=== PATIENT | male | born 1960 | race Caucasian/White ===

== ENCOUNTER 2019-01-21 20:21 | Emergency (ER) | payer OTHER ==
[~2019-01-21 20:21] MED LIST: CETI10CA5 PO; L.AC1CAP6 PO; MULT-1258 PO; TAMS-1 PO
[2019-01-21 21:13] LABS: BASOPHILS % (AUTO) 0.5 % (0.0-5.0); EOSINOPHILS % (AUTO) 2.4 % (0.0-8.0); HEMATOCRIT 45.1 % (42-54); LYMPHOCYTES % (AUTO) 12.1 % (21.0-51.0); MEAN CORPUSCULAR HGB CONC 34.2 g/dL (32.0-36.0); MEAN CORPUSCULAR VOLUME 87.5 fL (79-99); MONOCYTES % (AUTO) 9.3 % (3.0-13.0); NEUTROPHILS % (AUTO) 75.7 % (40.0-77.0); NUCLEATED RED BLOOD CELLS 0.1 % (0.0-0.19); PLATELET COUNT (AUTO) 303 K/uL (130-400); RED BLOOD CELL COUNT(AUTO) 5.15 MIL/uL (4.50-6.20); WHITE BLOOD COUNT (AUTO) 8.6 K/uL (4.8-10.8)
[2019-01-21] MEDS ORDERED: TRAMADOL HCL 50 MG TABLET ONE (21:13)
[2019-01-21 21:18] LABS: APPEARANCE,URINE CLOUDY (CLEAR); BILIRUBIN,URINE NEGATIVE (NEGATIVE); GLUCOSE, URINE (UA) NEGATIVE (NEGATIVE); KETONES,URINE NEGATIVE (NEGATIVE); LEUKOCYTE ESTERASE ,URINE SMALL (NEGATIVE); NITRATE,URINE NEGATIVE (NEGATIVE); OCCULT BLOOD,URINE LARGE (NEGATIVE); PROTEIN,URINE >=300 (NEGATIVE); UROBILINOGEN,URINE 0.2 mg/dL (0.2-1.0)
[2019-01-21 21:20] LABS: COLOR,URINE DARK YELLOW (YELLOW)
[2019-01-21 21:23] LABS: CREATININE 1.4 mg/dL (0.5-1.5); POTASSIUM 4.5 mmol/L (3.5-5.1)
[2019-01-21 21:25] LABS: PARTIAL THROMBOPLASTIN TIME 27.5 SEC (26.3-35.5); PROTHROMBIN TIME 10.5 SEC (9.6-11.6)
[2019-01-21 21:29] LABS: ALBUMIN 3.6 g/dL (3.5-5.0); BILIRUBIN,TOTAL 0.5 mg/dL (0.2-1.0); TOTAL PROTEIN, SERUM 7.4 g/dL (6.0-8.3)
[2019-01-21 21:33] LABS: BACTERIA,URINE Many /HPF (None Seen); RBC,URINE TNTC /HPF (0-1); SQUAMOUS EPITHELIAL CELL,UR None Seen /HPF (0-2); TRANSITIONAL EPI CELLS,URINE Rare /HPF (None Seen); WBC,URINE 26-50 /HPF (0-1)
[2019-01-21] MEDS ORDERED: SODIUM CHLORIDE 0.9% 1000ML 1,000 ML IV ONE (23:17)
== END 2019-01-21 23:57 | disposition home or self-care (01) ==
LOC: EDH 20:21
DX: R33.9 Retention of urine, unspecified (principal); R31.9 Hematuria, unspecified
CPT/HCPCS: 36415; 51702; 80053; 81001; 82550; 84484; 85025; 85610; 85730; 87088; 93005; 99284; J7030

== ENCOUNTER 2020-12-09 08:47 | Emergency (ER) | payer OTHER | END 2020-12-09 10:24 | disposition home or self-care (01) | LOC: EDH 08:47 | DX: Z46.6 Encounter for fitting and adjustment of urinary device (principal); I10 Essential (primary) hypertension; Z85.51 Personal history of malignant neoplasm of bladder | CPT/HCPCS: 99281 ==

== ENCOUNTER 2022-07-11 19:23 | Emergency (ER) | payer OTHER ==
[~2022-07-11] VITALS: Ht 172.7 cm; Wt 74.8 kg
[2022-07-11 19:24] VITALS: BP 167/100
[2022-07-11 20:25] LABS: APPEARANCE,URINE CLEAR (CLEAR); BILIRUBIN,URINE NEGATIVE (NEGATIVE); COLOR,URINE YELLOW (YELLOW); GLUCOSE, URINE (UA) NEGATIVE (NEGATIVE); KETONES,URINE NEGATIVE (NEGATIVE); LEUKOCYTE ESTERASE ,URINE NEGATIVE (NEGATIVE); NITRATE,URINE NEGATIVE (NEGATIVE); OCCULT BLOOD,URINE TRACE-INTACT (NEGATIVE); PROTEIN,URINE NEGATIVE (NEGATIVE); UROBILINOGEN,URINE 0.2 mg/dL (0.2-1.0)
[2022-07-11 20:41] LABS: BACTERIA,URINE Few /HPF (None Seen); SQUAMOUS EPITHELIAL CELL,UR Rare /HPF (0-2)
[2022-07-11] MEDS ORDERED: CEPH500B PO (20:47)
[2022-07-11] MEDS ORDERED: CEFTRIAXONE 1G VIAL IM ONE (21:00)
== END 2022-07-11 21:14 | disposition home or self-care (01) ==
LOC: EDH 19:23
DX: N39.0 Urinary tract infection, site not specified (principal); R33.9 Retention of urine, unspecified; C61 Malignant neoplasm of prostate
CPT/HCPCS: 99284; 81001; 51702; 96372; J0696

== ENCOUNTER 2022-07-13 16:27 | Emergency (ER) | payer OTHER ==
[~2022-07-13] VITALS: Ht 172.7 cm; Wt 73.5 kg
[~2022-07-13 16:27] MED LIST changes: +CEPH500B PO
[2022-07-13 16:39] VITALS: BP 149/85
== END 2022-07-13 18:45 | disposition home or self-care (01) ==
LOC: EDH 16:27
DX: N32.89 Other specified disorders of bladder (principal); Z85.46 Personal history of malignant neoplasm of prostate; R33.9 Retention of urine, unspecified; Z79.899 Other long term (current) drug therapy
CPT/HCPCS: 99281

== ENCOUNTER 2022-07-15 03:56 | Emergency (ER) | payer OTHER ==
[~2022-07-15] VITALS: Ht 172.7 cm; Wt 75.3 kg
[2022-07-15 05:20] VITALS: BP 135/74
== END 2022-07-15 05:24 | disposition home or self-care (01) ==
LOC: EDH 03:56
DX: R33.9 Retention of urine, unspecified (principal); R31.9 Hematuria, unspecified; Z85.51 Personal history of malignant neoplasm of bladder; Z79.899 Other long term (current) drug therapy
CPT/HCPCS: 51702

== ENCOUNTER 2022-07-26 12:01 | Emergency (ER) | payer OTHER ==
[~2022-07-26 12:01] MED LIST changes: +FERR324T4 PO; +MAGN400C PO; +SENN8.6T32 PO
[2022-07-26 13:43] LABS: BASOPHILS % (AUTO) 0.4 % (0.0-5.0); HEMATOCRIT 26.2 % (42-54); LYMPHOCYTES % (AUTO) 5.6 % (21.0-51.0); MEAN CORPUSCULAR HEMOGLOBIN 29.2 pg (27.0-33.0); MEAN CORPUSCULAR HGB CONC 34.4 g/dL (32.0-36.0); MEAN CORPUSCULAR VOLUME 85.1 fL (79-99); MONOCYTES % (AUTO) 10.4 % (3.0-13.0); PLATELET COUNT (AUTO) 315 K/uL (130-400); RED BLOOD CELL COUNT(AUTO) 3.08 MIL/uL (4.50-6.20); RED CELL DISTRIBUTION WIDTH 12.2 % (11.0-15.5); WHITE BLOOD COUNT (AUTO) 8.3 K/uL (4.8-10.8)
[2022-07-26 13:55] LABS: CREATININE 1.3 mg/dL (0.5-1.5); MAGNESIUM 1.4 mg/dL (1.80-2.40); POTASSIUM 3.1 mmol/L (3.5-5.1)
[2022-07-26] MEDS ORDERED: HYDROCODONE/ACETAMINOPHEN 10/325 MG TAB PO ONE (14:30)
[2022-07-26] MEDS ORDERED: MAGNESIUM 2GM PREMIX 50ML 50 ML IV SCH (14:30)
[2022-07-26] MEDS ORDERED: POTASSIUM CHLORIDE 10% ELIXIR 20 MEQ/15 ML UDCUP PO ONE (14:30)
[2022-07-26] MEDS ORDERED: ONDANSETRON 4MG INJ IVP ONE (15:30)
[2022-07-26] MEDS ORDERED: POTASSIUM CHLORIDE 10MEQ/100ML 10 MEQ/100 ML ML IV SCH (15:30)
[2022-07-26] MEDS ORDERED: HYDROMORPHONE 0.5 MG SYG (0.5MG/0.5ML) IVP ONE (15:30)
[2022-07-26 19:23] VITALS: BP 148/90
== END 2022-07-26 19:24 | disposition home or self-care (01) ==
LOC: EDH 12:01
DX: T83.012A Breakdown (mechanical) of nephrostomy catheter, initial encounter (principal); E87.6 Hypokalemia; E83.42 Hypomagnesemia; Z79.899 Other long term (current) drug therapy; Z98.890 Other specified postprocedural states
CPT/HCPCS: 99284; 96365; 96375; 83735; 80048; 85025; 36415; J3475; J2405; J1170

== ENCOUNTER 2022-08-09 17:59 | Emergency (ER) | payer OTHER ==
[~2022-08-09] VITALS: Ht 172.7 cm; Wt 70.8 kg
[2022-08-09 18:36] LABS: BASOPHILS % (AUTO) 0.4 % (0.0-5.0); EOSINOPHILS % (AUTO) 0.3 % (0.0-8.0); HEMATOCRIT 34.1 % (42-54); LYMPHOCYTES % (AUTO) 3.5 % (21.0-51.0); MEAN CORPUSCULAR HEMOGLOBIN 27.9 pg (27.0-33.0); MEAN CORPUSCULAR HGB CONC 32.8 g/dL (32.0-36.0); NEUTROPHILS % (AUTO) 88.5 % (40.0-77.0); PLATELET COUNT (AUTO) 482 K/uL (130-400); RED BLOOD CELL COUNT(AUTO) 4.01 MIL/uL (4.50-6.20); RED CELL DISTRIBUTION WIDTH 12.7 % (11.0-15.5); WHITE BLOOD COUNT (AUTO) 14.1 K/uL (4.8-10.8)
[2022-08-09 18:45] LABS: CREATININE 2.1 mg/dL (0.5-1.5); POTASSIUM 3.9 mmol/L (3.5-5.1)
[2022-08-09 18:50] LABS: ALBUMIN 2.6 g/dL (3.5-5.0)
[2022-08-09 19:08] LABS: APPEARANCE,URINE TURBID (CLEAR); BILIRUBIN,URINE NEGATIVE (NEGATIVE); COLOR,URINE YELLOW (YELLOW); GLUCOSE, URINE (UA) NEGATIVE (NEGATIVE); KETONES,URINE NEGATIVE (NEGATIVE); LEUKOCYTE ESTERASE ,URINE 250 Leu/uL (NEGATIVE); NITRATE,URINE NEGATIVE (NEGATIVE); OCCULT BLOOD,URINE MODERATE (NEGATIVE); PH,URINE 5.5 (5.0-8.0); PROTEIN,URINE 70 mg/dL (NEGATIVE); UROBILINOGEN,URINE 0.2 mg/dL (0.2-1.0)
[2022-08-09 19:48] LABS: BACTERIA,URINE Few /HPF (None Seen)
[2022-08-09 19:49] LABS: AMORPHOUS SEDIMENT,UR Many /LPF (None Seen); MUCUS,URINE Few LPF (None Seen); SQUAMOUS EPITHELIAL CELL,UR Few /HPF (0-2); URIC ACID CRYSTALS,URINE Few /LPF (None Seen)
[2022-08-09] MEDS ORDERED: 0.9% NACL 500ML IV.SOLN 500 ML IV ONE (20:00)
[2022-08-09] MEDS ORDERED: ONDANSETRON 4MG INJ ONE (20:53)
[2022-08-09] MEDS ORDERED: CEPH500B PO (20:58)
[2022-08-09] MEDS ORDERED: ONDANSETRON 4MG INJ IVP ONE (21:00)
[2022-08-09 22:21] VITALS: BP 128/74
== END 2022-08-09 22:52 | disposition home or self-care (01) ==
LOC: EDH 17:59
DX: N99.528 Other complication of incontinent external stoma of urinary tract (principal); N39.0 Urinary tract infection, site not specified; Z98.890 Other specified postprocedural states; Z79.899 Other long term (current) drug therapy
CPT/HCPCS: 99284; 74176; 96374; 96361; 80053; 85025; 87088; 81001; 36415; J7040 ×2; J2405

== ENCOUNTER 2022-08-10 17:07 | Observation (INO) | payer OTHER ==
[~2022-08-10] VITALS: Ht 172.7 cm; Wt 62.1 kg
[2022-08-10] MEDS ORDERED: 0.9%NACL 1000ML 1,000 ML IV SCH (18:00)
[2022-08-10 18:22] LABS: BASOPHILS % (AUTO) 0.2 % (0.0-5.0); EOSINOPHILS % (AUTO) 0.1 % (0.0-8.0); HEMATOCRIT 31.8 % (42-54); MEAN CORPUSCULAR HEMOGLOBIN 27.9 pg (27.0-33.0); MEAN CORPUSCULAR HGB CONC 33.3 g/dL (32.0-36.0); MEAN CORPUSCULAR VOLUME 83.7 fL (79-99); MONOCYTES % (AUTO) 6.1 % (3.0-13.0); NEUTROPHILS % (AUTO) 88.7 % (40.0-77.0); PLATELET COUNT (AUTO) 347 K/uL (130-400); RED CELL DISTRIBUTION WIDTH 12.7 % (11.0-15.5)
[2022-08-10 18:28] LABS: CREATININE 2.1 mg/dL (0.5-1.5); POTASSIUM 4.2 mmol/L (3.5-5.1)
[2022-08-10 18:39] LABS: ALBUMIN 2.6 g/dL (3.5-5.0); TOTAL PROTEIN, SERUM 6.8 g/dL (6.0-8.3)
[2022-08-10 18:51] LABS: CRP QUANTITATIVE 191.2 mg/L (0.00-9.0)
[2022-08-10] MEDS ORDERED: CEFTRIAXONE 1G VIAL IVP ONE (19:00)
[2022-08-10 19:43] LABS: BILIRUBIN,URINE NEGATIVE (NEGATIVE); COLOR,URINE YELLOW (YELLOW); GLUCOSE, URINE (UA) NEGATIVE (NEGATIVE); KETONES,URINE NEGATIVE (NEGATIVE); LEUKOCYTE ESTERASE ,URINE 25 Leu/uL (NEGATIVE); NITRATE,URINE NEGATIVE (NEGATIVE); OCCULT BLOOD,URINE LARGE (NEGATIVE); PH,URINE 5.5 (5.0-8.0); PROTEIN,URINE 50 mg/dL (NEGATIVE); UROBILINOGEN,URINE 0.2 mg/dL (0.2-1.0)
[2022-08-10 19:44] LABS: APPEARANCE,URINE CLOUDY (CLEAR)
[2022-08-10 20:04] LABS: BACTERIA,URINE FEW /HPF (None Seen); MUCUS,URINE RARE LPF (None Seen); URIC ACID CRYSTALS,URINE FEW /LPF (None Seen); YEAST,URINE BUDDING RARE /HPF (None Seen)
[2022-08-10] MEDS ORDERED: CLONIDINE HCL 0.1 MG TABLET PO PRN (21:30)
[2022-08-10] MEDS ORDERED: HYDRALAZINE 20MG/ML VIAL IV PRN (21:30)
[2022-08-10] MEDS ORDERED: HYDROCODONE/ACETAMINOPHEN 5/325 MG TAB PO PRN (21:30)
[2022-08-10] MEDS: 0.9%NACL 1000ML 1,000 ML IV SCH (21:41)
[2022-08-10] MEDS: ACETAMINOPHEN 325 MG TAB PO PRN (23:07)
[2022-08-11] VITALS (12 sets, daily range): BP systolic 133–157; BP diastolic 72–92
[2022-08-11] MEDS: ONDANSETRON 4MG INJ IVP PRN ×3 (00:13→20:14)
[2022-08-11] MEDS ORDERED: CETI10CA5 PO (00:39)
[2022-08-11] MEDS ORDERED: TRAM50TA4 PO (00:39)
[2022-08-11] MEDS ORDERED: TEMA30CA PO (00:39)
[2022-08-11] MEDS ORDERED: CEPH500C2 PO (00:39)
[2022-08-11] MEDS ORDERED: CETIRIZINE HCL 5 MG TABLET PO ONE (01:00)
[2022-08-11] MEDS: HYDROMORPHONE 0.5 MG SYG (0.5MG/0.5ML) IVP PRN ×2 (01:55→22:36)
[2022-08-11] MEDS: TRAMADOL HCL 50 MG TABLET PO PRN ×2 (02:56→20:30)
[2022-08-11] MEDS: 0.9%NACL 1000ML 1,000 ML IV SCH ×4 (04:27→19:47)
[2022-08-11] MEDS: ACETAMINOPHEN 325 MG TAB PO PRN ×2 (04:27→17:08)
[2022-08-11 06:05] LABS: HEMATOCRIT 26.4 % (42-54); MEAN CORPUSCULAR HEMOGLOBIN 28.3 pg (27.0-33.0); MEAN CORPUSCULAR HGB CONC 33.7 g/dL (32.0-36.0); MEAN CORPUSCULAR VOLUME 83.8 fL (79-99); RED BLOOD CELL COUNT(AUTO) 3.15 MIL/uL (4.50-6.20); RED CELL DISTRIBUTION WIDTH 12.6 % (11.0-15.5); WHITE BLOOD COUNT (AUTO) 10.2 K/uL (4.8-10.8)
[2022-08-11] MEDS: INSULIN HUMULIN R 100 UNIT/ML 3ML SQ SCH ×4 (06:15→19:53)
[2022-08-11 06:26] LABS: CREATININE 1.7 mg/dL (0.5-1.5); MAGNESIUM 1.6 mg/dL (1.80-2.40); PHOSPHORUS 3.9 mg/dL (2.5-4.9)
[2022-08-11] MEDS ORDERED: ENOXAPARIN SODIUM 30 MG/0.3 ML SQ SCH (09:00)
[2022-08-11] MEDS ORDERED: CEFTRIAXONE 2GM VIAL IVP SCH (09:00)
[2022-08-11] MEDS: FAMOTIDINE 20MG TAB PO SCH (09:00)
[2022-08-11] MEDS ORDERED: MIDAZOLAM HCL 1 MG/ML 2ML VIAL ONE (14:45)
[2022-08-11] MEDS ORDERED: LIDOCAINE HCL-MPF 1% 2ML VIAL ONE ×2 (14:45→15:16)
[2022-08-11] MEDS ORDERED: IOHEXOL-350 75 ML VIAL IV ONE (14:45)
[2022-08-11] MEDS ORDERED: FENTANYL CITRATE PF 50 MCG/1 ML 2ML VIAL ONE (14:46)
[2022-08-11] MEDS: CETIRIZINE HCL 5 MG TABLET PO SCH (20:09)
[2022-08-12] MEDS: ACETAMINOPHEN 325 MG TAB PO PRN (02:30)
[2022-08-12] MEDS: ONDANSETRON 4MG INJ IVP PRN (02:42)
[2022-08-12 04:23] VITALS: BP 147/84
[2022-08-12 05:10] LABS: HEMATOCRIT 27.4 % (42-54); MEAN CORPUSCULAR HEMOGLOBIN 28.3 pg (27.0-33.0); MEAN CORPUSCULAR HGB CONC 33.2 g/dL (32.0-36.0); MEAN CORPUSCULAR VOLUME 85.1 fL (79-99); RED BLOOD CELL COUNT(AUTO) 3.22 MIL/uL (4.50-6.20); RED CELL DISTRIBUTION WIDTH 13.1 % (11.0-15.5)
[2022-08-12 05:46] LABS: CREATININE 1.4 mg/dL (0.5-1.5); MAGNESIUM 1.5 mg/dL (1.80-2.40); POTASSIUM 4.4 mmol/L (3.5-5.1); TOTAL PROTEIN, SERUM 5.5 g/dL (6.0-8.3)
[2022-08-12] MEDS: INSULIN HUMULIN R 100 UNIT/ML 3ML SQ SCH (06:22)
[2022-08-12 08:00] VITALS: BP 154/98
[2022-08-12] MEDS: FAMOTIDINE 20MG TAB PO SCH (08:31)
[2022-08-12] MEDS: CETIRIZINE HCL 5 MG TABLET PO SCH (08:31)
== END 2022-08-12 08:45 | disposition home or self-care (01) ==
LOC: EDH 17:07 → EDHIP 21:06 → 3CH 23:07
PROVIDERS: ADMIT Internal Medicine Pulmonary Disease; ATTEND Internal Medicine Pulmonary Disease
DX: N13.6 Pyonephrosis (principal); T83.032A Leakage of nephrostomy catheter, initial encounter; N17.9 Acute kidney failure, unspecified; N18.30 Chronic kidney disease, stage 3 unspecified; D63.1 Anemia in chronic kidney disease; D72.829 Elevated white blood cell count, unspecified; R74.02 Elevation of levels of lactic acid dehydrogenase [LDH]; C61 Malignant neoplasm of prostate; C67.9 Malignant neoplasm of bladder, unspecified; C78.7 Secondary malignant neoplasm of liver and intrahepatic bile duct; C85.90 Non-Hodgkin lymphoma, unspecified, unspecified site; E87.1 Hypo-osmolality and hyponatremia; E88.09 Other disorders of plasma-protein metabolism, not elsewhere classified; E78.6 Lipoprotein deficiency; K80.20 Calculus of gallbladder without cholecystitis without obstruction; N99.528 Other complication of incontinent external stoma of urinary tract; Y73.2 Prosthetic and other implants, materials and accessory gastroenterology and urology devices associated with adverse incidents; Z85.51 Personal history of malignant neoplasm of bladder; Z79.899 Other long term (current) drug therapy
CPT/HCPCS: 96374; 99284; 84484; 80053 ×2; 85025; 87040 ×2; 83605 ×2; 86140; 81001; 36415 ×3; 50435 ×2; 96376 ×2; 96375; 83735 ×2; 84100; 80048; 85027 ×2; 87088; G0378 ×34; J7030 ×4; J0696 ×2; C1769; C1729 ×2; J3010; J2250; J2405 ×4; J1644; J3490 ×2; Q9967; J1170 ×2; 99156; 99157

== ENCOUNTER → 2022-08-14 | Emergency (ER) | payer OTHER ==
[~2022-08-14] VITALS: Ht 172.7 cm; Wt 72.6 kg
[~2022-08-14] MED LIST changes: +0.9% NACL 500ML IV.SOLN 500 ML IV ONE; +DIAZEPAM 5 MG/ML 2 ML SYG IVP ONE; +HYDROMORPHONE 0.5 MG SYG (0.5MG/0.5ML) IVP ONE; +TEMA30CA PO; +TRAM50TA4 PO
[2022-08-14 07:29] LABS: ABG BASE EXCESS -12.7 mmol/L (-2.0-3.0); ABG HCO3 9.9 mmol/L (21.0-28.0); ABG OXYGEN SATURATION 98.9 % (95.0-99.0); ABG PCO2 17 mmHg (35-48)
[2022-08-14 08:11] LABS: BASOPHILS % (AUTO) 0.8 % (0.0-5.0); EOSINOPHILS % (AUTO) 0.1 % (0.0-8.0); HEMATOCRIT 33.4 % (42-54); LYMPHOCYTES % (AUTO) 3.8 % (21.0-51.0); MEAN CORPUSCULAR HEMOGLOBIN 28.1 pg (27.0-33.0); MEAN CORPUSCULAR HGB CONC 32.3 g/dL (32.0-36.0); MEAN CORPUSCULAR VOLUME 86.8 fL (79-99); MONOCYTES % (AUTO) 6.6 % (3.0-13.0); NEUTROPHILS % (AUTO) 84.3 % (40.0-77.0); PLATELET COUNT (AUTO) 341 K/uL (130-400); RED BLOOD CELL COUNT(AUTO) 3.85 MIL/uL (4.50-6.20); RED CELL DISTRIBUTION WIDTH 13.9 % (11.0-15.5)
[2022-08-14 08:28] LABS: POTASSIUM 4.9 mmol/L (3.5-5.1)
[2022-08-14 08:42] LABS: ALBUMIN 2.4 g/dL (3.5-5.0); TOTAL PROTEIN, SERUM 6.4 g/dL (6.0-8.3)
[2022-08-14 08:59] LABS: B-TYPE NATRIURETIC PEPTIDE 181 pg/mL (0-100)
[2022-08-14 09:00] VITALS: BP 0/0
== END ==
LOC: EDH 07:09
DX: I25.9 Chronic ischemic heart disease, unspecified (principal); E87.20 Acidosis, unspecified; N28.9 Disorder of kidney and ureter, unspecified; Z79.899 Other long term (current) drug therapy; Z98.890 Other specified postprocedural states
CPT/HCPCS: 99285; 96374; 71045; 96361; 96375; 82947; 82550; 83874; 84484; 80053; 82803; 83880; 85025; 83605; 36415; 93005; 36600; 94660; 82435; 84132; 84295; 85018; J7040; J3360; J1170